=== PATIENT | male | born 1980 | race Caucasian/White ===

== ENCOUNTER 2018-04-05 12:26 | Emergency (ER) | payer OTHER ==
[2018-04-05] MEDS ORDERED: DIPHENHYDRAMINE 50 MG/ML VIAL ONE (13:52)
[2018-04-05] MEDS ORDERED: METHYLPREDNISOLONE 125 MG INJ ONE (13:52)
[2018-04-05] MEDS ORDERED: FAMOTIDINE 20 MG/2 ML VIAL IV ONE (13:53)
[2018-04-05 13:56] LABS: Absolute Lymphocytes (CBC) 2.2 K/uL (0.7-4.9); Absolute Monocytes 0.7 K/uL (0.1-1.3); Absolute Neutrophil 8.3 K/uL (1.8-8.0); Basophils % 0.6 % (0-1.3); Eosinophils % 1.2 % (0-4.4); Hematocrit 39.9 % (39.6-49.0); Lymphocytes % 19.4 % (15.3-44.8); MCH 30.2 pg (27.0-35.0); MCV 87.9 fL (80-100); MPV 8.3 fL (7.6-11.3); Monocytes % 5.8 % (3.3-12.3); RBC Red Blood Cell Count 4.54 M/uL (4.33-5.43)
[2018-04-05 14:34] LABS: Potassium 3.8 mmol/L (3.5-5.1)
--- NOTE | 2018-04-05 15:00 | ER ---
Nurse's Notes [facility] Name: John Etienne Age: 37 yrs Sex: Male : 1980 Arrival Date: 04/05/2018 Time: 12:30 Bed 26 Private MD: None, None Diagnosis: Acute Allergic Reaction Presentation: 04/05 12:44 Presenting complaint: Patient states: eye swelling to right eye and itching started sv yesterday, chest tightness and dyspnea started a couple of hours ago. Benadryl taking around 0600 today. Transition of care: patient was not received from another setting of care. Onset of symptoms was April 04, 2018. Risk Assessment: Do you want to hurt yourself or someone else? Patient reports no desire to harm self or others. Care prior to arrival: None. 12:44 Method Of Arrival: Ambulatory sv 12:44 Acuity: [place] 3 sv 13:36 Initial Sepsis Screen: Does the patient meet any 2 criteria? No. Patient's initial kr2 sepsis screen is negative. Does the patient have a suspected source of infection? No. Patient's initial sepsis screen is negative. Historical: - Allergies: 12:46 No Known Allergies; sv - Home Meds: 12:46 None [Active]; sv - PMHx: 12:46 None; sv - PSHx: 12:46 None; sv - Immunization history:: Adult Immunizations up to date. - Social history:: Smoking status: Patient/guardian denies using tobacco. - Ebola Screening: : No symptoms or risks identified at this time. Screenin:36 Abuse screen: Denies threats or abuse. Denies injuries from another. Nutritional kr2 screening: No deficits noted. Tuberculosis screening: No symptoms or risk factors identified. Fall Risk None identified. Assessment: 13:34 General: Appears in no apparent distress. uncomfortable, well groomed, well developed, kr2 well nourished, Behavior is calm, cooperative, appropriate for age. Pain: Denies pain. Neuro: Level of Consciousness is awake, alert, obeys commands, Oriented to person, place, time, situation, Appropriate for age. Cardiovascular: Capillary refill < 3 seconds in bilateral fingers Patient's skin is warm and dry. Cardiovascular: Reports since tightness in chest. Respiratory: Airway is patent Respiratory effort is even, unlabored, Respiratory pattern is regular, symmetrical. GI: Abdomen is flat, non-distended. : No signs and/or symptoms were reported regarding the genitourinary system. EENT: Nares are clear bilaterally Oral mucosa is moist. Throat is clear. EENT: Eyes swelling and redness to right eye. Derm: Skin is intact, is healthy with good turgor, Skin is pink, warm \T\ dry. Musculoskeletal: Circulation, motion, and sensation intact. Vital Signs: 12:46 BP 132 / 81; Pulse 92; Resp 18; Temp 98.4; Pulse Ox 97% ; Weight 90.72 kg; Height 5 ft. sv 7 in. (170.18 cm); Pain 7/10; 13:57 BP 121 / 65; Pulse 86; Resp 16; Pulse Ox 97% on R/A; kr2 14:45 BP 120 / 66; Pulse 84; Resp 16; Pulse Ox 99% on R/A; kr2 12:46 Body Mass Index 31.32 (90.72 kg, 170.18 cm) sv ED Course: 12:30 Patient arrived in ED. mr 12:30 None, None is Private Physician. mr 12:45 Triage completed. sv 12:46 Arm band placed on left wrist. sv 13:16 [facility] Blanco [facility]. jr8 13:16 Aashish Granados MD is Attending Physician. jr8 13:26 Kaelyn Maldonado, ROMEO is Primary Nurse. kr2 13:36 Patient has correct armband on for positive identification. Bed in low position. Call kr2 light in reach. Side rails up X 1. monitoring and evaluation advisor on. Pulse ox on. NIBP on. Door closed. Warm blanket given. Head of bed elevated. 13:45 Inserted saline lock: 20 gauge in right antecubital area, using aseptic technique. kr2 Blood collected. 15:10 No provider procedures requiring assistance completed. kr2 15:10 IV discontinued, intact, bleeding controlled, No redness/swelling at site. Pressure kr2 dressing applied. Administered Medications: 13:56 Drug: SOLU-Medrol 125 mg Route: IVP; Site: right antecubital; kr2 14:30 Follow up: Response: No adverse reaction; Marked relief of symptoms kr2 13:56 Drug: Benadryl 25 mg Route: IVP; Site: right antecubital; kr2 14:30 Follow up: Response: No adverse reaction; Marked relief of symptoms kr2 13:56 Drug: Pepcid 20 mg Route: IVP; Site: right antecubital; kr2 14:30 Follow up: Response: No adverse reaction kr2 Outcome: 15:00 Discharge ordered by . ct 15:14 Patient left the ED. kr2 17:42 Discharged to home ambulatory. kr2 17:42 Condition: improved 17:42 Discharge instructions given to patient, Instructed on discharge instructions, follow up and referral plans. medication usage, Demonstrated understanding of instructions, follow-up care, medications, Prescriptions given X 1. Signatures: Fiona Painting RN RN Marilyn Kuhn mr Leo Blanco PA PA jr8 Kaelyn Maldonado RN RN kr2 Corrections: (The following items were deleted from the chart) 12:47 12:44 Presenting complaint: Patient states: eye swelling to right eye and itching sv started yesterday, chest tightness and dyspnea started a couple of hours ago. sv 17:42 15:10 Patient did not have IV access during this emergency room visit. kr2 kr2
--- NOTE | 2018-04-05 15:00 | EDPHYS ---
Physician Documentation [facility] Name: John Etienne Age: 37 yrs Sex: Male : 1980 Arrival Date: 04/05/2018 Time: 12:30 Bed 26 Private MD: None, None ED Physician Aashish Granados HPI: 04/05 14:56 This 37 yrs old Male presents to ER via Ambulatory with complaints of Eye jr8 Swelling/chest tightness/itching. 14:56 Onset: The symptoms/episode began/occurred acutely, today. Severity of symptoms: At jr8 their worst the symptoms were moderate in the emergency department the symptoms have improved mildly. The patient has not experienced similar symptoms in the past. The patient has not recently seen a physician. Patient stated that he started to have right eye swelling. Shortly after had itching everywhere and it felt like his throat was getting sore and was having chest tightness. Took benadryl [employer] with mild relief. Does not know what he got into. Did not do anything different this AM . Historical: - Allergies: 12:46 No Known Allergies; sv - Home Meds: 12:46 None [Active]; sv - PMHx: 12:46 None; sv - PSHx: 12:46 None; sv - Immunization history:: Adult Immunizations up to date. - Social history:: Smoking status: Patient/guardian denies using tobacco. - Ebola Screening: : No symptoms or risks identified at this time. ROS: 14:56 Eyes: Negative for injury, pain, redness, and discharge, ENT: Negative for injury, jr8 pain, and discharge, Neck: Negative for injury, pain, and swelling, Respiratory: Negative for shortness of breath, cough, wheezing, and pleuritic chest pain, Abdomen/GI: Negative for abdominal pain, nausea, vomiting, diarrhea, and constipation, Back: Negative for injury and pain, MS/Extremity: Negative for injury and deformity, Skin: Negative for injury, rash, and discoloration, Neuro: Negative for headache, weakness, numbness, tingling, and seizure. 14:56 Eyes: Positive for swelling, of the right lower eyelid. 14:56 Cardiovascular: Positive for chest pain, Negative for edema, orthopnea, palpitations, paroxysmal nocturnal dyspnea. Exam: 14:56 Head/Face: Normocephalic, atraumatic. ENT: Nares patent. No nasal discharge, no jr8 septal abnormalities noted. Tympanic membranes are normal and external auditory canals are clear. Oropharynx with no redness, swelling, or masses, exudates, or evidence of obstruction, uvula midline. Mucous membranes moist. Neck: Trachea midline, no thyromegaly or masses palpated, and no cervical lymphadenopathy. Supple, full range of motion without nuchal rigidity, or vertebral point tenderness. No Meningismus. Cardiovascular: Regular rate and rhythm with a normal S1 and S2. No gallops, murmurs, or rubs. Normal PMI, no JVD. No pulse deficits. Respiratory: Lungs have equal breath sounds bilaterally, clear to auscultation and percussion. No rales, rhonchi or wheezes noted. No increased work of breathing, no retractions or nasal flaring. Abdomen/GI: Soft, non-tender, with normal bowel sounds. No distension or tympany. No guarding or rebound. No evidence of tenderness throughout. Back: No spinal tenderness. No costovertebral tenderness. Full range of motion. Skin: Warm, dry with normal turgor. Normal color with no rashes, no lesions, and no evidence of cellulitis. MS/ Extremity: Pulses equal, no cyanosis. Neurovascular intact. Full, normal range of motion. Neuro: Awake and alert, GCS 15, oriented to person, place, time, and situation. Cranial nerves II-XII grossly intact. Motor strength 5/5 in all extremities. Sensory grossly intact. Cerebellar exam normal. Normal gait. 14:56 Eyes: Periorbital structures: swelling, that is mild, on the right lower eyelid, Pupils: equal, round, and reactive to light and accomodation, Extraocular movements: intact throughout, Conjunctiva: normal, Corneas: are normal, Sclera: no appreciated abnormality, Anterior chamber: normal, Lids and lashes: appear normal, Examination of the other eye reveals no obvious gross abnormality. Vital Signs: 12:46 BP 132 / 81; Pulse 92; Resp 18; Temp 98.4; Pulse Ox 97% ; Weight 90.72 kg; Height 5 ft. sv 7 in. (170.18 cm); Pain 7/10; 13:57 BP 121 / 65; Pulse 86; Resp 16; Pulse Ox 97% on R/A; kr2 14:45 BP 120 / 66; Pulse 84; Resp 16; Pulse Ox 99% on R/A; kr2 12:46 Body Mass Index 31.32 (90.72 kg, 170.18 cm) MDM: 13:16 Patient medically screened. [facility] 14:56 Data reviewed: vital signs, nurses notes, lab test result(s), EKG. Data interpreted: 8 Pulse oximetry: on room air is 97 %. Interpretation: normal. Counseling: I had a detailed discussion with the patient and/or guardian regarding: the historical points, exam findings, and any diagnostic results supporting the discharge/admit diagnosis, lab results, the need for outpatient follow up, a family practitioner, to return to the emergency department if symptoms worsen or persist or if there are any questions or concerns that arise at home. Response to treatment: the patient's symptoms have resolved after treatment. 04/05 13:35 Order name: CBC with Diff; Complete Time: 14:21 [facility] 04/05 13:35 Order name: Basic Metabolic Panel; Complete Time: 14:40 [facility] 04/05 12:48 Order name: EKG; Complete Time: 12:48 04/05 12:48 Order name: EKG - Nurse/Tech; Complete Time: 14:03 04/05 13:35 Order name: IV; Complete Time: 13:55 [facility] Administered Medications: 13:56 Drug: SOLU-Medrol 125 mg Route: IVP; Site: right antecubital; kr2 14:30 Follow up: Response: No adverse reaction; Marked relief of symptoms kr2 13:56 Drug: Benadryl 25 mg Route: IVP; Site: right antecubital; kr2 14:30 Follow up: Response: No adverse reaction; Marked relief of symptoms kr2 13:56 Drug: Pepcid 20 mg Route: IVP; Site: right antecubital; kr2 14:30 Follow up: Response: No adverse reaction kr2 Disposition: 16:51 Co-signature as Attending Physician, Aashish Granados MD. rn Disposition: 04/05/18 15:00 Discharged to Home. Impression: Acute Allergic Reaction . - Condition is Stable. - Discharge Instructions: Anaphylactic Reaction. - Prescriptions for Prednisone 20 mg Oral Tablet - take 1 tablet by ORAL route once daily for 5 days; 5 tablet. - Medication Reconciliation Form, Thank You Letter, Antibiotic Education, Prescription Opioid Use form. - Follow up: Private Physician; When: 2 - 3 days; Reason: Recheck today's complaints, Continuance of care, Re-evaluation by your physician. - Problem is new. - Symptoms have improved. Signatures: Dispatcher [employer] Fiona Castaneda, RN RN Aashish Saravia MD MD rn Roszak, Josh, PA PA jr8 Kaelyn Maldonado RN RN kr2 Corrections: (The following items were deleted from the chart) 15:14 15:00 04/05/2018 15:00 Discharged to Home. Impression: Acute Allergic Reaction . kr2 Condition is Stable. Forms are Medication Reconciliation Form, Thank You Letter, Antibiotic Education, Prescription Opioid Use. Follow up: Private Physician; When: 2 - 3 days; Reason: Recheck today's complaints, Continuance of care, Re-evaluation by your physician. Problem is new. Symptoms have improved. jr8
--- NOTE | 2018-04-05 17:31 | EKG ---
Test Date: 2018-04-05 Test Time: 12:55:31 Territory Service Representative: KARTHIK MEASUREMENT RESULTS: Intervals: Rate: 86 NE: 162 QRSD: 84 QT: 342 QTc: 409 [place]: P: 50 NE: 162 QRS: 47 T: 53 INTERPRETIVE STATEMENTS: Normal sinus rhythm Possible Anterior infarct, age undetermined Abnormal ECG No previous ECG available for comparison Electronically Signed On 04-05-18 17:30:19 CDT by Mil Coon
== END 2018-04-05 15:14 | disposition home or self-care (01) ==
LOC: ER 12:26
DX: H57.8 Other specified disorders of eye and adnexa (principal); R07.9 Chest pain, unspecified
CPT/HCPCS: 36415; 80048; 85025; 93005; 96374; 96375; 99284; J2930